=== PATIENT | female | born 1990 | race Two or more races ===

== ENCOUNTER 2017-06-03 20:02 | Emergency (ER) | payer OTHER ==
[~2017-06-03] VITALS: Ht 165.1 cm; Wt 65.8 kg
[~2017-06-03 20:02] MED LIST: INTESTINEX680 MG PO; ZANTAC150 MG PO
== END 2017-06-03 23:57 | disposition home or self-care (01) ==
LOC: ER 20:02
DX: N30.80 Other cystitis without hematuria (principal)

== ENCOUNTER 2018-01-20 14:05 | Outpatient (CLI) | payer OTHER | END 2018-01-20 14:19 | disposition home or self-care (01) | LOC: RAD 501 14:05 | DX: R10.84 Generalized abdominal pain (principal) ==

== ENCOUNTER → 2018-12-29 10:21 | Outpatient (CLI) | payer OTHER | END | disposition home or self-care (01) | LOC: LAB 10:21 | DX: J11.1 Influenza due to unidentified influenza virus with other respiratory manifestations (principal); J20.0 Acute bronchitis due to Mycoplasma pneumoniae ==

== ENCOUNTER 2019-06-04 01:58 | Emergency (ER) | payer OTHER ==
[~2019-06-04] VITALS: Ht 165.1 cm; Wt 67.1 kg
== END 2019-06-04 09:21 | disposition home or self-care (01) ==
LOC: ER 01:58
DX: J22 Unspecified acute lower respiratory infection (principal)

== ENCOUNTER 2020-02-04 10:42 | Emergency (ER) | payer OTHER ==
[~2020-02-04] VITALS: Ht 165.1 cm; Wt 67.1 kg
== END 2020-02-04 14:35 | disposition home or self-care (01) ==
LOC: ER 10:42
DX: A05.9 Bacterial foodborne intoxication, unspecified (principal); E86.0 Dehydration; K52.89 Other specified noninfective gastroenteritis and colitis; Z20.828 Contact with and (suspected) exposure to other viral communicable diseases

== ENCOUNTER 2020-04-25 07:29 | Emergency (ER) | payer OTHER ==
[~2020-04-25] VITALS: Ht 165.1 cm; Wt 68.0 kg
[2020-04-25] MEDS ORDERED: CEFTRIAXONE1 G1 IM (08:50)
[2020-04-25] MEDS ORDERED: KETO10TA2 PO (08:50)
[2020-04-25] MEDS ORDERED: FLUCONAZOLE150 MG PO (08:50)
[2020-04-25] MEDS ORDERED: LIDOCAINE IM (08:57)
== END 2020-04-25 09:03 | disposition home or self-care (01) ==
LOC: ER 07:29
DX: J35.01 Chronic tonsillitis (principal)

== ENCOUNTER 2024-11-28 15:42 | Emergency (ER) | payer OTHER ==
[~2024-11-28] VITALS: Ht 165.1 cm; Wt 79.4 kg
[~2024-11-28 15:42] MED LIST changes: +CEFTRIAXONE1 G1 IM; +FLUCONAZOLE150 MG PO; +KETO10TA2 PO; +LIDOCAINE IM
[2024-11-28 16:11] VITALS: BP 114/73; O2SAT 99
[2024-11-28] MEDS ORDERED: PANTOPRAZOLE SODIUM 40 MG/VIAL VIAL IV PUSH STA (17:38)
[2024-11-28] MEDS ORDERED: FAMOtidine 10 MG/ML (4ML VIAL) IV PUSH STA (17:38)
[2024-11-28] MEDS ORDERED: HYOSCYAMINE SULFATE 0.125 MG TAB.SUBL ONE (17:41)
[2024-11-28] MEDS ORDERED: FAMOTIDINE/PF 20 MG/2 ML VIAL ONE (17:41)
[2024-11-28] MEDS ORDERED: HYOSCYAMINE SULFATE 0.125 MG TAB.SUBL SL ONE (17:45)
[2024-11-28 18:05] LABS: BASO % 0.7 % (0.1-1.2); EOS # 0.22 (0.04-0.54); EOS % 3.2 % (0.7-7.0); LYMPH # 2.62 (1.18-3.74); LYMPH % 38.5 % (19.3-53.1); MEAN PLATELET VOLUME 8.60 fl (9.4-12.4); MONO # 0.49 (0.24-0.82); MONO % 7.2 % (4.7-12.5); NEUT # 3.40 (1.56-6.13); NEUT % 50.1 % (34.0-71.1); RED CELL DISTRIBUTION WIDTH 12.2 % (11.6-14.4)
[2024-11-28 18:39] LABS: ALT/SGPT 24.0 U/L (12-78); AST/SGOT 16.0 U/L (15-37); BILIRUBIN TOTAL 0.2 mg/dL (0.3-1.2); BUN CREA RATIO 16.0 (7.0-25.0); CREATININE SERUM 0.79 mg/dL (0.55-1.02); GFR 83.31; GLOBULINA 4.0 G/DL (2.4-3.5); GLUCOSE FASTING 96.0 mg/dL (65-100); OSMOLALITY SERUM 283.0 MOSM/KG (275-295)
== END 2024-11-28 20:38 | disposition home or self-care (01) ==
LOC: ER 15:42
DX: R10.9 Unspecified abdominal pain (principal)